=== PATIENT | male | born 1965 | race Caucasian/White ===

== ENCOUNTER 2021-09-24 07:17 | Observation (INO) | payer OTHER, SELFPAY ==
[2021-09-24] MEDS ORDERED: Aspirin 325 MG TAB ONE (07:48)
[2021-09-24] MEDS ORDERED: Acetaminophen 500 MG TAB ONE (07:48)
[2021-09-24] MEDS ORDERED: Nitroglycerin 0.4 MG TAB 1 EACH ONE (07:48)
[2021-09-24 08:21] LABS: #Eosinphils 0.1 thou/uL (0.0-0.7); #Lymphocytes 1.3 thou/uL (1.20-3.40); #Monocytes 0.5 thou/uL (0.11-0.59); #Neutrophils 2.4 thou/uL (1.40-6.50); %Basophils 0.3 % (0.0-1.0); %Eosinophils 2.6 % (0.0-10.0); %Monocytes 11.3 % (0.0-10.0); %Neutrophils 54.8 % (42.0-75.0); Hemoglobin 12.9 g/dL (14.0-18.0); Mean Corpuscular Hemoglobin 31.1 pg (27.0-31.0); Mean Corpuscular Volume 91.5 fL (78.0-98.0); Mean Platelet Volume 7.5 fL (7.4-10.4); Platelet Count 126 thou/uL (130-400); RBC Distribution Width 14.5 % (11.5-14.5); Red Blood Cell (RBC) Count 4.13 mill/uL (4.70-6.10); White Blood Cell (WBC) Count 4.3 thou/uL (4.8-10.8)
[2021-09-24 08:50] LABS: ALT (SGPT) 16 U/L (8-55); AST (SGOT) 10 U/L (5-34); Albumin 3.9 g/dL (3.5-5.0); Alkaline Phosphatase 56 U/L (40-110); Anion Gap 11 mmol/L (10-20); BUN (Urea Nitrogen) 10 mg/dL (8.4-25.7); Bilirubin, Total 0.6 mg/dL (0.2-1.2); Calc. Creatinine Clearance 0 mL/min (70-130); Calcium 9.1 mg/dL (7.8-10.44); Carbon Dioxide 27 mmol/L (22-29); Chloride 103 mmol/L (98-107); Globulin 2.5 g/dL (2.4-3.5); Glucose 367 mg/dL (70-105); Lipase 24 U/L (8-78); Potassium 4.1 mmol/L (3.5-5.1); Protein, Total 6.4 g/dL (6.0-8.3); Sodium 137 mmol/L (136-145)
[2021-09-24] MEDS ORDERED: Ibuprofen 200 MG TAB ONE (11:22)
[2021-09-24 11:36] LABS: Troponin I Less than 0.010 ng/mL (< 0.028)
[2021-09-24 12:32] LABS: SARS-CoV-2 NAA Rapid Test Not Detected (NotDetected)
[2021-09-24 14:44] LABS: Troponin I 0.011 ng/mL (< 0.028)
[2021-09-27] MEDS ORDERED: Bupivacaine 0.5% 10 ML VIAL ONE (03:36)
== END 2021-09-24 15:05 | disposition short-term general hospital (02) ==
LOC: ERS 07:17 → ERHOLD 09:50
PROVIDERS: ADMIT Student in an Organized Health Care Education/Training Program; ATTEND Student in an Organized Health Care Education/Training Program
DX: R07.9 Chest pain, unspecified (principal); R06.02 Shortness of breath; E11.9 Type 2 diabetes mellitus without complications; E78.00 Pure hypercholesterolemia, unspecified; I10 Essential (primary) hypertension; G47.30 Sleep apnea, unspecified; I25.10 Atherosclerotic heart disease of native coronary artery without angina pectoris; E78.5 Hyperlipidemia, unspecified; Z85.71 Personal history of Hodgkin lymphoma; Z79.02 Long term (current) use of antithrombotics/antiplatelets; Z79.82 Long term (current) use of aspirin; Z79.899 Other long term (current) drug therapy; Z88.2 Allergy status to sulfonamides; Z88.8 Allergy status to other drugs, medicaments and biological substances; Z95.5 Presence of coronary angioplasty implant and graft; Z20.822 Contact with and (suspected) exposure to COVID-19
CPT/HCPCS: 36415; 71045; 80053; 83690; 84484; 85025; 85379; 93005; 94760; J3490; U0002

== ENCOUNTER 2025-01-28 22:38 | Inpatient (IN) | payer BC ==
[~2025-01-28 22:38] MED LIST: Iopamidol-370 76% 500 ML MDV (1 ML CHARGE) ONE
[2025-01-28] MEDS ORDERED: Tenecteplase 50 MG ONE (23:45)
[2025-01-28 23:49] LABS: #Basophils Less than 0.03 10x3/uL (0.0-0.2); %Basophils 0.2 % (0.0-1.0); %Lymphocytes 18.6 % (21.0-51.0); %Monocytes 8.9 % (0.0-10.0); %Neutrophils 70.8 % (42.0-75.0); Hemoglobin 10.2 g/dL (14.0-18.0); Mean Corpuscular HGB CONC 32.9 g/dL (32.0-36.0); Mean Corpuscular Hemoglobin 30.2 pg (27.0-31.0); Mean Corpuscular Volume 91.7 fL (78.0-98.0); Platelet Count 155 10x3/uL (130-400); RBC Distribution Width 13.9 % (11.5-14.5); Red Blood Cell (RBC) Count 3.38 mill/uL (4.70-6.10)
[2025-01-28 23:51] LABS: Prothrombin Time 12.8 sec (12.0-14.7)
[2025-01-29 00:12] LABS: ALT (SGPT) 7 U/L (Less than 45); AST (SGOT) 13 U/L (11-34); Albumin 3.5 g/dL (3.1-4.5); Alkaline Phosphatase 54 U/L (40-110); Anion Gap 14 mmol/L (10-20); BUN (Urea Nitrogen) 9 mg/dL (8.4-25.7); Bilirubin, Total 0.4 mg/dL (0.3-1.2); Calc. Creatinine Clearance 0 mL/min (70-130); Calcium 9.3 mg/dL (7.8-10.44); Carbon Dioxide 25 mmol/L (22-29); Chloride 109 mmol/L (98-107); Estimated GFR 106; Globulin 3.2 g/dL (2.4-3.5); Glucose 119 mg/dL (70-105); Potassium 3.8 mmol/L (3.5-5.1); Protein, Total 6.7 g/dL (6.0-8.3); Sodium 144 mmol/L (136-145)
[2025-01-29] MEDS ORDERED: Acetaminophen 325 MG TAB PO PRN (00:17)
[2025-01-29] MEDS ORDERED: hydrALAZINE 20 MG/ML VIAL SLOW IVP PRN (00:17)
[2025-01-29] MEDS ORDERED: Labetalol HCl 100 MG/20 ML VIAL SLOW IVP PRN (00:17)
[2025-01-29] MEDS ORDERED: Acetaminophen 650 MG Suppository PR PRN (00:17)
[2025-01-29] MEDS ORDERED: niCARdipine 25 MG in Sodium Chloride 0.9% 250 ML 250 ML IVPB PRN (00:17)
[2025-01-29] MEDS ORDERED: Glucagon 1 MG/ML KIT IM PRN (01:37)
[2025-01-29] MEDS ORDERED: Dextrose 5% in Water 1,000 ML IV PRN (01:37)
[2025-01-29] MEDS ORDERED: Dextrose 50% Abboject 50 ML SYRINGE SLOW IVP PRN (01:37)
[2025-01-29] MEDS: Mupirocin 1 GM TUBE NASAL DECOLONIZATION TP SCH (02:26)
[2025-01-29 05:02] LABS: Hemoglobin A1c 5.2 % (4.0-6.0)
[2025-01-29 05:42] LABS: Cardiac Risk 2.8 (Less than 4.5)
[2025-01-29] MEDS ORDERED: Gabapentin 300 MG CAP PO PRN (13:01)
[2025-01-29] MEDS: Mupirocin 1 GM TUBE NASAL DECOLONIZATION NASAL SCH (13:34)
[2025-01-29] MEDS: Sodium Chloride 0.9% 1,000 ML IV SCH (13:34)
[2025-01-29] MEDS: busPIRone HCl 5 MG TAB PO SCH (21:39)
[2025-01-29] MEDS: Atorvastatin Calcium 40 MG TAB PO SCH (21:39)
[2025-01-29] MEDS: Divalproex Sodium DR 500 MG TAB PO SCH (21:39)
[2025-01-29] MEDS: OXcarbazepine 300 MG TAB PO SCH (21:41)
[2025-01-30 04:40] LABS: #Basophils Less than 0.03 10x3/uL (0.0-0.2); %Basophils 0.4 % (0.0-1.0); %Eosinophils 1.9 % (0.0-10.0); %Lymphocytes 24.2 % (21.0-51.0); %Monocytes 11.1 % (0.0-10.0); %Neutrophils 61.7 % (42.0-75.0); Hematocrit 31.5 % (42.0-52.0); Hemoglobin 10.3 g/dL (14.0-18.0); Mean Corpuscular HGB CONC 32.7 g/dL (32.0-36.0); Mean Corpuscular Hemoglobin 29.9 pg (27.0-31.0); Mean Corpuscular Volume 91.6 fL (78.0-98.0); Platelet Count 154 10x3/uL (130-400); RBC Distribution Width 13.9 % (11.5-14.5); Red Blood Cell (RBC) Count 3.44 mill/uL (4.70-6.10)
[2025-01-30 05:08] LABS: Anion Gap 13 mmol/L (10-20); BUN (Urea Nitrogen) 6 mg/dL (8.4-25.7); Calc. Creatinine Clearance 250 mL/min (70-130); Calcium 8.6 mg/dL (7.8-10.44); Carbon Dioxide 24 mmol/L (22-29); Chloride 109 mmol/L (98-107); Estimated GFR 116; Glucose 173 mg/dL (70-105); Potassium 3.6 mmol/L (3.5-5.1); Sodium 142 mmol/L (136-145)
[2025-01-30] MEDS: Levothyroxine Sodium 25 MCG TAB PO SCH (06:35)
[2025-01-30] MEDS: Communication Order-Pharmacy FS SCH (08:59)
[2025-01-30] MEDS: Pantoprazole 40 MG DR.TAB PO SCH (08:59)
[2025-01-30] MEDS: Aspirin Chewable 81 MG TAB PO SCH (08:59)
[2025-01-30] MEDS: Fluticasone Propionate Nasal Spray 16 gm Bottle NASAL SCH (09:00)
[2025-01-30] MEDS: Lorazepam 2 MG/ML VIAL SLOW IVP SCH (10:19)
[2025-01-30] MEDS: QUEtiapine 200 MG TAB PO SCH (21:16)
[2025-01-30] MEDS: Insulin Lispro 100 UNIT/ML 10 ML VIAL SC PRN (21:17)
[2025-01-31 06:17] LABS: #Basophils Less than 0.03 10x3/uL (0.0-0.2); %Basophils 0.2 % (0.0-1.0); %Eosinophils 2.2 % (0.0-10.0); %Lymphocytes 22.7 % (21.0-51.0); %Monocytes 12.1 % (0.0-10.0); %Neutrophils 62.1 % (42.0-75.0); Hemoglobin 10.4 g/dL (14.0-18.0); Mean Corpuscular HGB CONC 33.5 g/dL (32.0-36.0); Mean Corpuscular Volume 89.3 fL (78.0-98.0); Mean Platelet Volume 9.4 fL (7.4-10.4); Platelet Count 168 10x3/uL (130-400); Red Blood Cell (RBC) Count 3.47 mill/uL (4.70-6.10)
[2025-01-31 06:34] LABS: Anion Gap 11 mmol/L (10-20); BUN (Urea Nitrogen) 6 mg/dL (8.4-25.7); Calc. Creatinine Clearance 231 mL/min (70-130); Calcium 8.6 mg/dL (7.8-10.44); Carbon Dioxide 24 mmol/L (22-29); Chloride 110 mmol/L (98-107); Estimated GFR 113; Glucose 189 mg/dL (70-105); Potassium 3.6 mmol/L (3.5-5.1); Sodium 141 mmol/L (136-145)
[2025-01-31 16:26] VITALS: BMI 33.2
[2025-02-02 00:05] VITALS: BMI 32.7
[2025-02-03 13:22] VITALS: BP 99/66; TEMP 97.8
[2025-02-03 16:53] LABS: SARS-CoV-2 E Target Negative; SARS-CoV-2 N2 Target Negative; SARS-CoV-2 NAA Rapid Test Not Detected (NotDetected); SARS-CoV-2 RdRP gene Negative
== END 2025-02-03 17:46 | DRG 62 ==
LOC: ERS 22:38 → CCU 01-29 00:04 → 2SE 01-31 01:54
PROVIDERS: ADMIT Student in an Organized Health Care Education/Training Program; ATTEND Family Medicine
DX: I63.9 Cerebral infarction, unspecified (principal); G81.94 Hemiplegia, unspecified affecting left nondominant side; G47.33 Obstructive sleep apnea (adult) (pediatric); E66.9 Obesity, unspecified; E11.9 Type 2 diabetes mellitus without complications; I10 Essential (primary) hypertension; E78.5 Hyperlipidemia, unspecified; I25.10 Atherosclerotic heart disease of native coronary artery without angina pectoris; Z98.890 Other specified postprocedural states; Z88.8 Allergy status to other drugs, medicaments and biological substances; Z88.2 Allergy status to sulfonamides; Z90.49 Acquired absence of other specified parts of digestive tract; R29.714 NIHSS score 14; D64.9 Anemia, unspecified; F31.9 Bipolar disorder, unspecified; F41.9 Anxiety disorder, unspecified; Z68.32 Body mass index [BMI] 32.0-32.9, adult
CPT/HCPCS: 36415; 36416; 70450; 70496; 70498; 70551; 80048; 80053; 80061; 83036; 85025; 85610; 85730; 93005; 93306; 96374; 99292; J1815; J2060; J3101; J7030; Q9967; U0002

== ENCOUNTER 2025-05-08 23:46 | Inpatient (IN) | payer BC ==
[2025-05-09 00:20] LABS: #Basophils Less than 0.03 10x3/uL (0.0-0.2); #Eosinophils 0.05 10x3/uL (0.0-0.7); #Monocytes 0.70 10x3/uL (0.11-0.59); #Neutrophils 3.63 10x3/uL (1.40-6.50); %Basophils 0.2 % (0.0-1.0); %Eosinophils 0.9 % (0.0-10.0); %Lymphocytes 19.8 % (21.0-51.0); %Monocytes 12.7 % (0.0-10.0); %Neutrophils 65.9 % (42.0-75.0); Hematocrit 31.8 % (42.0-52.0); Hemoglobin 10.7 g/dL (14.0-18.0); Mean Corpuscular Hemoglobin 30.7 pg (27.0-31.0); Mean Corpuscular Volume 91.4 fL (78.0-98.0); Platelet Count 126 10x3/uL (130-400); Red Blood Cell (RBC) Count 3.48 mill/uL (4.70-6.10); White Blood Cell (WBC) Count 5.51 10x3/uL (4.8-10.8)
[2025-05-09 00:37] LABS: ALT (SGPT) 75 U/L (Less than 45); AST (SGOT) 106 U/L (11-34); Albumin 3.9 g/dL (3.1-4.5); Alkaline Phosphatase 101 U/L (40-110); Anion Gap 16 mmol/L (10-20); BUN (Urea Nitrogen) 16 mg/dL (8.4-25.7); Bilirubin, Total 1.2 mg/dL (0.3-1.2); Calc. Creatinine Clearance 0 mL/min (70-130); Calcium 9.1 mg/dL (7.8-10.44); Carbon Dioxide 18 mmol/L (22-29); Chloride 110 mmol/L (98-107); Globulin 3.1 g/dL (2.4-3.5); Glucose 164 mg/dL (70-105); Potassium 3.8 mmol/L (3.5-5.1); Sodium 140 mmol/L (136-145)
[2025-05-09 00:42] LABS: Troponin I 0.016 ng/mL (< 0.028)
[2025-05-09] MEDS ORDERED: Dextrose 50% Abboject 50 ML SYRINGE SLOW IVP PRN (02:26)
[2025-05-09] MEDS ORDERED: Glucagon 1 MG/ML KIT IM PRN (02:26)
[2025-05-09] MEDS ORDERED: Ondansetron PF 4 MG/2 ML Vial IVP PRN (02:27)
[2025-05-09] MEDS ORDERED: Acetaminophen 325 MG TAB PO PRN (02:27)
[2025-05-09] MEDS ORDERED: Calcium Carbonate 500 MG ChewTAB PO PRN (02:27)
[2025-05-09 03:30] VITALS: BMI 29.9
[2025-05-09] MEDS: Pantoprazole 40 MG DR.TAB PO SCH (08:58)
[2025-05-09] MEDS: risperiDONE 1 MG TAB PO SCH (08:58)
[2025-05-09] MEDS: Benztropine 1 MG TAB PO SCH (08:58)
[2025-05-09] MEDS: Insulin Glargine 30 UNITS/0.3 ML VIAL SC SCH (08:58)
[2025-05-09] MEDS: metFORMIN 500 MG TAB PO SCH (09:00)
[2025-05-09] MEDS: Aspirin Chewable 81 MG TAB PO SCH (09:02)
[2025-05-09] MEDS: Lisinopril 2.5 MG TAB PO SCH (09:06)
[2025-05-09] MEDS: Divalproex Sodium DR 500 MG TAB PO SCH (21:25)
[2025-05-10] MEDS: Aspirin 325 MG TAB ONE (01:05)
[2025-05-10] MEDS: Nitroglycerin 0.4 MG TAB (25 Tab Bottle) SL PRN (01:05)
[2025-05-10 02:09] LABS: Troponin I Less than 0.010 ng/mL (< 0.028)
[2025-05-10] MEDS: Nitroglycerin 0.4 MG TAB (25 Tab Bottle) ONE (03:55)
[2025-05-10 07:13] LABS: #Basophils Less than 0.03 10x3/uL (0.0-0.2); #Eosinophils 0.14 10x3/uL (0.0-0.7); #Monocytes 0.70 10x3/uL (0.11-0.59); #Neutrophils 2.70 10x3/uL (1.40-6.50); %Basophils 0.2 % (0.0-1.0); %Eosinophils 2.7 % (0.0-10.0); %Lymphocytes 32.4 % (21.0-51.0); %Monocytes 13.3 % (0.0-10.0); %Neutrophils 51.0 % (42.0-75.0); Hematocrit 29.2 % (42.0-52.0); Hemoglobin 9.8 g/dL (14.0-18.0); Mean Corpuscular Hemoglobin 31.0 pg (27.0-31.0); Mean Corpuscular Volume 92.4 fL (78.0-98.0); Platelet Count 157 10x3/uL (130-400); Red Blood Cell (RBC) Count 3.16 mill/uL (4.70-6.10); White Blood Cell (WBC) Count 5.28 10x3/uL (4.8-10.8)
[2025-05-10 07:14] LABS: ALT (SGPT) 46 U/L (Less than 45); AST (SGOT) 24 U/L (11-34); Albumin 3.5 g/dL (3.1-4.5); Alkaline Phosphatase 77 U/L (40-110); Anion Gap 15 mmol/L (10-20); BUN (Urea Nitrogen) 14 mg/dL (8.4-25.7); Bilirubin, Total 0.6 mg/dL (0.3-1.2); Calc. Creatinine Clearance 142 mL/min (70-130); Calcium 8.7 mg/dL (7.8-10.44); Carbon Dioxide 18 mmol/L (22-29); Cardiac Risk 3.6 (Less than 4.5); Chloride 112 mmol/L (98-107); Cholesterol 104 mg/dl (< 200 Desired); Globulin 2.6 g/dL (2.4-3.5); Glucose 105 mg/dL (70-105); HDL Cholesterol 29 mg/dL (>60 Neg Risk); LDL Cholesterol, Calculated 52 mg/dL; Potassium 3.8 mmol/L (3.5-5.1); Sodium 141 mmol/L (136-145); Triglycerides 117 mg/dL (Less than 150)
[2025-05-11 04:55] LABS: #Basophils Less than 0.03 10x3/uL (0.0-0.2); #Eosinophils 0.13 10x3/uL (0.0-0.7); #Monocytes 0.73 10x3/uL (0.11-0.59); #Neutrophils 3.26 10x3/uL (1.40-6.50); %Basophils 0.2 % (0.0-1.0); %Eosinophils 2.3 % (0.0-10.0); %Lymphocytes 27.5 % (21.0-51.0); %Monocytes 12.7 % (0.0-10.0); %Neutrophils 56.8 % (42.0-75.0); Hematocrit 28.6 % (42.0-52.0); Hemoglobin 9.5 g/dL (14.0-18.0); Mean Corpuscular Hemoglobin 30.7 pg (27.0-31.0); Mean Corpuscular Volume 92.6 fL (78.0-98.0); Platelet Count 143 10x3/uL (130-400); Red Blood Cell (RBC) Count 3.09 mill/uL (4.70-6.10); White Blood Cell (WBC) Count 5.74 10x3/uL (4.8-10.8)
[2025-05-11 05:12] LABS: Anion Gap 18 mmol/L (10-20); BUN (Urea Nitrogen) 19 mg/dL (8.4-25.7); Calc. Creatinine Clearance 116 mL/min (70-130); Calcium 9.2 mg/dL (7.8-10.44); Carbon Dioxide 15 mmol/L (22-29); Chloride 111 mmol/L (98-107); Glucose 111 mg/dL (70-105); Magnesium 1.7 mg/dL (1.6-2.6); Potassium 3.8 mmol/L (3.5-5.1); Sodium 140 mmol/L (136-145)
[2025-05-11] MEDS: Magnesium 2 GM/50 ML(in water) 2 GM in Premix 1 BAG IVPB SCH (09:50)
[2025-05-11] MEDS: Heparin 5,000 UNITS/ML VIAL SC SCH (20:10)
[2025-05-12 04:18] LABS: #Basophils Less than 0.03 10x3/uL (0.0-0.2); #Eosinophils 0.11 10x3/uL (0.0-0.7); #Monocytes 0.59 10x3/uL (0.11-0.59); #Neutrophils 2.81 10x3/uL (1.40-6.50); %Basophils 0.2 % (0.0-1.0); %Eosinophils 2.2 % (0.0-10.0); %Lymphocytes 29.0 % (21.0-51.0); %Monocytes 11.9 % (0.0-10.0); %Neutrophils 56.5 % (42.0-75.0); Hematocrit 27.7 % (42.0-52.0); Hemoglobin 9.2 g/dL (14.0-18.0); Mean Corpuscular Hemoglobin 30.2 pg (27.0-31.0); Mean Corpuscular Volume 90.8 fL (78.0-98.0); Platelet Count 128 10x3/uL (130-400); Red Blood Cell (RBC) Count 3.05 mill/uL (4.70-6.10); White Blood Cell (WBC) Count 4.97 10x3/uL (4.8-10.8)
[2025-05-12 04:27] LABS: Anion Gap 17 mmol/L (10-20); BUN (Urea Nitrogen) 20 mg/dL (8.4-25.7); Calc. Creatinine Clearance 168 mL/min (70-130); Calcium 9.0 mg/dL (7.8-10.44); Carbon Dioxide 16 mmol/L (22-29); Chloride 111 mmol/L (98-107); Glucose 105 mg/dL (70-105); Magnesium 1.6 mg/dL (1.6-2.6); Potassium 3.7 mmol/L (3.5-5.1); Sodium 140 mmol/L (136-145)
[2025-05-12] MEDS: Insulin Glargine 30 UNITS/0.3 ML VIAL SC SCH (13:45)
[2025-05-12] MEDS: Magnesium 2 GM/50 ML(in water) 2 GM in Premix 1 BAG IVPB SCH ×2 (14:53→15:04)
[2025-05-13 04:58] LABS: #Basophils Less than 0.03 10x3/uL (0.0-0.2); #Eosinophils 0.14 10x3/uL (0.0-0.7); #Monocytes 0.58 10x3/uL (0.11-0.59); #Neutrophils 2.96 10x3/uL (1.40-6.50); %Basophils 0.2 % (0.0-1.0); %Eosinophils 2.7 % (0.0-10.0); %Lymphocytes 28.2 % (21.0-51.0); %Monocytes 11.2 % (0.0-10.0); %Neutrophils 57.3 % (42.0-75.0); Hematocrit 27.2 % (42.0-52.0); Hemoglobin 9.0 g/dL (14.0-18.0); Mean Corpuscular Hemoglobin 30.3 pg (27.0-31.0); Mean Corpuscular Volume 91.6 fL (78.0-98.0); Platelet Count 125 10x3/uL (130-400); Red Blood Cell (RBC) Count 2.97 mill/uL (4.70-6.10); White Blood Cell (WBC) Count 5.17 10x3/uL (4.8-10.8)
[2025-05-13 05:12] LABS: Anion Gap 14 mmol/L (10-20); BUN (Urea Nitrogen) 18 mg/dL (8.4-25.7); Calc. Creatinine Clearance 173 mL/min (70-130); Calcium 8.5 mg/dL (7.8-10.44); Carbon Dioxide 21 mmol/L (22-29); Chloride 109 mmol/L (98-107); Glucose 81 mg/dL (70-105); Potassium 4.0 mmol/L (3.5-5.1); Sodium 140 mmol/L (136-145)
[2025-05-14 12:38] VITALS: BP 109/71; TEMP 97.8
== END 2025-05-14 14:15 | disposition home or self-care (01) | DRG 92 ==
LOC: ERS 23:46 → 2SE 05-09 02:29 → OBSVTOIN 05-11 10:37
PROVIDERS: ADMIT Student in an Organized Health Care Education/Training Program; ATTEND Internal Medicine
DX: R29.90 Unspecified symptoms and signs involving the nervous system (principal); C85.90 Non-Hodgkin lymphoma, unspecified, unspecified site; I10 Essential (primary) hypertension; E78.5 Hyperlipidemia, unspecified; I25.10 Atherosclerotic heart disease of native coronary artery without angina pectoris; G47.33 Obstructive sleep apnea (adult) (pediatric); E11.9 Type 2 diabetes mellitus without complications; F31.9 Bipolar disorder, unspecified; F41.9 Anxiety disorder, unspecified; Z98.890 Other specified postprocedural states; E83.42 Hypomagnesemia; D69.6 Thrombocytopenia, unspecified; Z88.2 Allergy status to sulfonamides; Z88.8 Allergy status to other drugs, medicaments and biological substances; F43.10 Post-traumatic stress disorder, unspecified
CPT/HCPCS: 36415; 36416; 70450; 70496; 70498; 70551; 71045; 72141; 80048; 80053; 80061; 82607; 83036; 83735; 84146; 84484; 85025; 93005; 93010; 96374; G0378; J1644; J1815; J2060; J3475; Q9967